=== PATIENT | female | born 1940 | race Caucasian/White ===

== ENCOUNTER 2016-08-10 14:32 | Emergency (ER) | payer OTHER ==
[~2016-08-10] VITALS: Ht 160 cm; Wt 99.2 kg
[~2016-08-10 14:32] MED LIST: ASPI-232 PO; DVN/160 PO; FLUT0.15 NAE; GEMF600T3 PO; GLC500 PO; IBUP-103 PO; IBUP1CAP9 PO; INSUINJ4 SQ; METO50TA7 PO; METR0.754 TOP; NVLGI SC; RABE20TA5 PO; SITA100T3 PO; [UNRECOGNIZED DRUG - REMARK]; baclofen
[2016-08-10 14:37] VITALS: TEMP 36.9; Ht 160 cm; Wt 99.2 kg
[2016-08-10] MEDS ORDERED: PRAV20TA PO (14:37)
[2016-08-10] MEDS ORDERED: FMR25 PO (14:50)
[2016-08-10] MEDS ORDERED: MECL1TAB40 PO (15:08)
[2016-08-10 15:37] LABS: BASO % 0.4 %; BASO ABS # 0.02 K/uL (0-0.2); COMPLETE YES; EOS % 2.3 %; HEMATOCRIT 34.4 % (37-47); IG% 3.9 %; LYMPH % 24.4 %; LYMPH ABS # 1.18 K/uL (1.2-3.4); MEAN CELL VOLUME 82.3 fL (80-100); MEAN CORPUSCULAR HEMOGLOBIN 25.8 pg (25-34); MEAN CORPUSCULAR HGB CONC 31.4 g/dl (32-36); MEAN PLATELET VOLUME 9.2 fL (7.4-10.4); MONO % 10.5 %; NEUT % 58.5 %; PLATELET COUNT 316 K/uL (130-400); RED BLOOD COUNT 4.18 M/uL (4.2-5.4); WHITE BLOOD COUNT 4.84 K/uL (4.8-10.8)
[2016-08-10 15:50] LABS: PROTHROMBIN TIME (PATIENT) 10.4 SECONDS (9.0-12.0)
[2016-08-10 15:55] LABS: BUN/CREATININE RATIO 11.7 (10-20); CALCIUM 7.8 mg/dl (8.5-10.1); CREATININE 0.92 mg/dl (0.60-1.20); POTASSIUM 3.8 mmol/L (3.5-5.1)
--- NOTE | 2016-08-10 16:06 | DIAGNOSTIC IMAGING REPORT ---
ULTRASOUND RIGHT VENOUS DOPP LOWER EXT UNILAT CLINICAL HISTORY: Right leg pain and swelling COMPARISON STUDY: No previous studies for comparison. FINDINGS: Real-time and color flow Doppler imaging were performed. Flow was seen within the femoral, popliteal and calf veins with no intraluminal thrombus demonstrated. The saphenous vein is patent. IMPRESSION: No evidence of right lower extremity DVT. Electronically signed by: Dar Higgins M.D. 08/10/2016 4:04 PM
--- NOTE | 2016-08-10 16:23 | DIAGNOSTIC IMAGING REPORT ---
RIGHT KNEE 3 VIEWS CLINICAL HISTORY: Right knee pain and swelling. Trauma. COMPARISON: None DISCUSSION: No acute fractures are visualized. There are mild osteoarthritic changes present, most pronounced in the patellofemoral joint. There is no evidence for soft tissue swelling. IMPRESSION: Mild osteoarthritic change. No acute fractures. Electronically signed by: Dar Higgins M.D. 08/10/2016 4:21 PM
[2016-08-10 17:07] VITALS: BP 157/91; PULSE 76; O2SAT 97
--- NOTE | 2016-08-10 17:16 | EMERGENCY ROOM VISIT NOTE ---
ED Visit Note First contact with patient: 15:06 Chief Complaint: Right knee pain. History of Present Illness: Ms. Del Real is a 75-year-old white female who ambulates into the ED complaining of right knee pain. Historically patient reports she has a history of superficial thrombophlebitis, diabetes, breast cancer and hypertension. Patient is on to report approximately 3 weeks ago she was getting out of her car on some ice twisting her knees. She reports she developed bilateral knee swelling that resolved. She also developed right knee pain over the superior aspect of the tibia. Since that time the pain has been constant. She goes on to report that during the holidays she was doing a lot of sitting working on crafts and developed swelling in the right lower leg and ankle. This never caused any discomfort but she was worried about the swelling. She was seen at the [facility] urgent care center today and referred to the ED for her swelling. Patient reports during examination the practitioner produced pain in the mid calf area. They reported concern for possible DVT. Currently patient complains of an achiness over the anterior superior aspect of the tibia. She rates her discomfort 6/10. The pain is nonradiating. The pain worsens with palpation. She has been taking NSAIDs with mild relief of her discomfort. Associated with her pain as previously noted she noted swelling to the lower leg, ankle and foot. She denies fevers, chills, sweats, upper respiratory tract symptoms, cough, wheezing, shortness of breath, chest pain/discomfort, palpitations, orthopnea, abdominal pain, decreased appetite, nausea, vomiting, lower extremity weakness/ numbness/tingling, recent surgery/extended travel, cramping and claudication. Review of Systems: As noted above in history of present illness. All body systems were reviewed and found to be negative as noted above. Past Medical History: As previously noted, status post hysterectomy, rotator cuff repair mastectomy. Current Medications: Medications Dose Route/Sig Max Daily Dose Days Date Category Dose Instructions Meclizine HCl 12.5 Mg Tab 12.5 Mg PO PRN UD PRN 08/10/16 Reported Femara (Letrozole) 2.5 Mg Tab 2.5 Mg PO DAILY 08/13/15 Reported Flonase Allergy Relief (Fluticasone Propionate (Nasal)) 50 Mcg/Act Spr 2 [place] DAILY PRN 04/25/15 Reported Metrocream (Metronidazole HCl) Cr 1 Appln TOP BID PRN 04/25/15 Reported Advil (Ibuprofen) 200 Mg Tab 400 Mg PO Q4 PRN 02/18/15 Reported Aspir-81 (Aspirin) 81 Mg Tab 81 Mg PO QAM 01/23/15 Reported Novolog (Insulin Aspart) Inj 1 Dose SC AC PRN 01/23/15 Reported Less than 200 give 2U 101-150 give 4 U 151-200 give 5U 201-250 give 6U 251-300 give 7U 301-350 give 8U Lantus Solostar Pen (Insulin Glargine) 100 Unit/ Inj 20 Units SQ HS 01/23/15 Reported Diovan (Valsartan) 160 Mg Tab 160 Mg PO QAM 01/23/15 Reported Aciphex (Rabeprazole Sodium) 20 Mg Tab 20 Mg PO BID 01/23/15 Reported Pravachol (Pravastatin Sodium) 20 Mg Tab 40 Mg PO QPM 11/15/10 Reported Toprol-Xl (Metoprolol Succinate) 50 Mg Tabcr 50 Mg PO QAM 10/17/10 Reported Januvia (Sitagliptin Phosphate) 100 Mg Tab 100 Mg PO QAM 10/17/10 Reported Lopid (Gemfibrozil) 600 Mg Tab 600 Mg PO BID 10/17/10 Reported Glucophage * (Metformin HCl) 1,000 Mg Tab 1,000 Mg PO BID 10/17/10 Reported Allergies to Medications: Codeine, oxycodone, tramadol. Social History: Patient is not currently employed; she lives her and feels safe in her home environment; she denies tobacco and alcohol use. Physical Examination: Vital Signs: Date Time Temp Pulse Resp B/P Pulse Ox O2 Delivery O2 Flow Rate FiO2 08/10/16 17:07 76 20 157/91 97 08/10/16 14:37 36.9 90 18 186/94 98 Room Air GENERAL: 75-year-old female in mild distress due to pain, nontoxic-appearing, afebrile and hemodynamically stable. NEUROLOGICAL: Awake, alert and oriented to person, place and time. Answering questions appropriately and following commands. Normal gait. Good hand eye coordination. No focal motor sensory deficits. SKIN: Warm, dry and pink. No soft tissue eruptions or trauma noted. HEENT: Atraumatic and normocephalic. THORAX: Lungs sounds are clear to auscultation and equal bilaterally with symmetrical chest wall. No wheezing, rales or rhonchi. No crepitus, tenderness , subcutaneous air or deformities noted. HEART: Regular rate and rhythm. No gallops, rubs or murmurs are appreciated. ABDOMEN: Obese, soft and nontender. Positive bowel sounds in all quadrants. No guarding, rigidity or organomegaly. LOWER EXTREMITIES: Moves all extremities well on command and with purpose. All distal neurovascular statuses are intact and equal bilaterally. Right Lower Leg: No gross bony deformity. Mild tenderness over the superior anterior aspect of the tibia without bony deformity or crepitus. No laxity of the collateral or cruciate ligaments. Negative Joe's test. Negative bounce test. Negative patellar apprehension test. Negative ballottement test. No tenderness over the medial joint line or lateral joint lines. No tenderness in the posterior knee. Starting at mid calf extending down into the foot is swelling. I was able to reproduce a tender spot in the mid gastrocnemius. I did not appreciate any cords. Throughout the foot the skin was warm and pink and capillary refill is brisk. Distal pulses and sensations are intact. Full range of motion in flexion and extension of the knee and plantar flexion and dorsiflexion of the ankles against resistance. ED Course: Patient is assessed as noted above. Laboratory Testing: Test 08/10/16 15:25 Range/Units White Blood Count 4.84 4.8-10.8 K/uL Red Blood Count 4.18 4.2-5.4 M/uL Hemoglobin 10.8 12.0-16.0 g/dL Hematocrit 34.4 37-47 % Mean Corpuscular Volume 82.3 80-100 fL Mean Corpuscular Hemoglobin 25.8 25-34 pg Mean Corpuscular Hemoglobin Concent 31.4 32-36 g/dl Platelet Count 316 130-400 K/uL Mean Platelet Volume 9.2 7.4-10.4 fL Neutrophils (%) (Auto) 58.5 % Lymphocytes (%) (Auto) 24.4 % Monocytes (%) (Auto) 10.5 % Eosinophils (%) (Auto) 2.3 % Basophils (%) (Auto) 0.4 % Neutrophils # (Auto) 2.83 1.4-6.5 K/uL Lymphocytes # (Auto) 1.18 1.2-3.4 K/uL Monocytes # (Auto) 0.51 0.11-0.59 K/uL Eosinophils # (Auto) 0.11 0-0.5 K/uL Basophils # (Auto) 0.02 0-0.2 K/uL RDW Standard Deviation 46.3 36.4-46.3 fL RDW Coefficient of Variation 15.4 11.5-14.5 % Immature Granulocyte % (Auto) 3.9 % Immature Granulocyte # (Auto) 0.19 0.00-0.02 K/uL Prothrombin Time 10.4 9.0-12.0 SECONDS Prothromb Time International Ratio 1.0 0.9-1.1 Activated Partial Thromboplast Time 25.9 21.0-31.0 SECONDS Partial Thromboplastin Ratio 1.0 Sodium Level 141 136-145 mmol/L Potassium Level 3.8 3.5-5.1 mmol/L Chloride Level 106 98-107 mmol/L Carbon Dioxide Level 24 21-32 mmol/L Anion Gap 11.0 3-11 mmol/L Blood Urea Nitrogen 11 7-18 mg/dl Creatinine 0.92 0.60-1.20 mg/dl Est Creatinine Clear Calc Drug Dose 59.3 ml/min Estimated GFR () 70.6 Estimated GFR (Non- 60.9 BUN/Creatinine Ratio 11.7 10-20 Random Glucose 150 70-99 mg/dl Calcium Level 7.8 8.5-10.1 mg/dl Right Knee X-Rays: Was read by myself and the radiologist showing no acute fractures or subluxations. Mild osteoarthritis was present and no evidence of soft tissue swelling was noted. Right Lower Extremity Venous Doppler Ultrasound: Was reviewed by myself and read by the radiologist showing no evidence of right lower extremity DVT. Patient was offered pain medications and refused. Patient was reassessed multiple times during her stay in the emergency department. Patient's case was reviewed with Dr. French; she apparently assessed the patient we agreed on diagnostic approach, treatment, disposition and plan. Patient was offered a walker for use and refused. Patient was educated about tonight's findings and instructed on her treatment plan; she verbalizes understanding and agreement with this plan. Clinical Impression: Right knee pain. Right lower leg swelling. Decision-Making: Initially my differential diagnosis I considered knee sprain, knee fracture, knee dislocation, osteoarthritis, muscle strain, ligamentous sprain, superficial thrombophlebitis, DVT and other causes. Disposition: Patient discharged home in stable condition accompanied by her ; prior to departure she was reassessed and subjectively reported she was feeling much better and rated her discomfort 08/18. Plan: Patient was encouraged to continue her current medications as prescribed. Patient was encouraged to use appropriate ibuprofen or acetaminophen as needed for pain. Patient was encouraged to keep her leg/foot elevated while at rest. Patient was encouraged to use ice or heat as needed for comfort. Patient was encouraged to follow-up with her family physician on today's concerns but also a recheck of her blood pressure. Patient was encouraged return the ED for worsening/uncontrolled pain, worsening swelling, leg weakness/numbness/tingling or any new/concerning symptoms.
--- NOTE | 2016-08-12 00:58 | EMERGENCY ROOM VISIT NOTE ---
ED Visit Note First contact with patient: 15:06 I have personally seen and evaluated the patient with the PA. I agree with the diagnosis and management decisions and have been personally involved in the case. Please see Esau Silva PA-C's notes for further details of the history, physical and visit.
== END 2016-08-10 17:08 | disposition home or self-care (01) ==
LOC: C.EDB 14:34 → C.EDD 17:08
DX: M25.561 Pain in right knee (principal); M79.89 Other specified soft tissue disorders; M79.661 Pain in right lower leg; Z79.4 Long term (current) use of insulin; Z79.82 Long term (current) use of aspirin; Z79.899 Other long term (current) drug therapy; E11.9 Type 2 diabetes mellitus without complications

== ENCOUNTER → 2017-10-06 | Outpatient (CLI) | payer OTHER ==
[~2017-10-06] MED LIST changes: +FMR25 PO; -IBUP1CAP9 PO; +MECL1TAB40 PO; -METO50TA7 PO; +METO50TA8 PO; +PRAV20TA PO; -[UNRECOGNIZED DRUG - REMARK]; -baclofen
== END | disposition home or self-care (01) ==
LOC: C.CPL 15:01
PROVIDERS: ATTEND Orthopaedic Surgery
DX: M18.11 Unilateral primary osteoarthritis of first carpometacarpal joint, right hand (principal)